=== PATIENT | female | born 1965 | race Two or more races ===

== ENCOUNTER 2017-09-12 05:25 | Day surgery (SDC) | payer OTHER ==
[~2017-09-12 05:25] MED LIST: SANDOSTATIN LAR30 MG IM
[2017-09-12] MEDS ORDERED: CIPRO500 MG PO (09:59)
[2017-09-12] MEDS ORDERED: NAPROXEN500 MG PO (09:59)
== END 2017-09-12 12:30 | disposition home or self-care (01) ==
LOC: CIR.AMB 05:25
DX: N84.0 Polyp of corpus uteri (principal); D25.0 Submucous leiomyoma of uterus

== ENCOUNTER 2019-05-26 04:34 | Emergency (ER) | payer OTHER ==
[~2019-05-26] VITALS: Ht 170.2 cm; Wt 80.7 kg
[~2019-05-26 04:34] MED LIST changes: +CIPRO500 MG PO; +NAPROXEN500 MG PO
== END 2019-05-26 09:31 | disposition home or self-care (01) ==
LOC: ER 04:34
DX: M94.0 Chondrocostal junction syndrome [Tietze] (principal)